=== PATIENT | male | born 1950 | race Caucasian/White ===

== ENCOUNTER 2016-09-30 15:09 | Emergency (ER) | payer OTHER ==
[~2016-09-30] VITALS: Wt 75.5 kg
[~2016-09-30 15:09] MED LIST: ACET500C5 PO; ALBU8.5H5 INH; AMLO-145 PO; ASPI81TA3 PO; ATEN-51 PO; DONE10TA7 PO; DOXY100T20 PO; FAMO40TA52 PO; GABA300C16 PO; GABA300S PO; HYDR-3498 PO; IBUP400T22 PO; LANS30CA PO; LANT3I SC; LORA10TA3 PO; LOSA50TA6 PO; METF-480 PO; MONT10TA21 PO; ONDA4TAB35 PO; PRED20TA PO; SIMV20TA2 PO
[2016-09-30] MEDS ORDERED: HYDROCODONE/APAP (10/325) TAB PO ONE (18:30)
[2016-09-30] MEDS ORDERED: predniSONE 20 MG TAB PO ONE (18:30)
[2016-09-30] MEDS ORDERED: GABA400C PO (18:32)
[2016-09-30] MEDS ORDERED: HYDR-902 PO (18:32)
--- NOTE | 2016-09-30 18:34 | ERD ---
ER Documentation Chief Complaint Date/Time DATE: 09/30/16 TIME: 18:32 Chief Complaint LEFT LEG TINGLING RADIATING TO LEFT SIDE TO HIS HEART. NO CP NO SOB . HPI This is 66-year-old male complains of left leg burning pain from his medial knee down to his medial ankle for the past 10 days. Says it tends to get worse as the day goes on but describes the pain is a burning pain with no swelling no erythema no weakness. The patient has diabetes and says it the same problem in the right leg last year. Is no leg dragging when he walks no foot drop no loss of sensation ROS All systems reviewed and are negative except as per history of present illness. Medications Home Meds Active Scripts Gabapentin* (Neurontin*) 400 Mg Capsule, 400 MG PO TID, #90 CAP Prov:JAGUAR WESTON DO 09/30/16 Hydrocodone/Acetaminophen ([place] 10-325 Tablet) 1 Each Tablet, 1 TAB PO Q6H Y for PAIN, #20 TAB Prov:JAGUAR WESTON DO 09/30/16 Gabapentin* (Gabapentin*) 300 Mg Capsule, 300 MG PO TID, #90 CAP Prov:RAJ TONY HISTOLOGY TECHNOLOGIST 03/29/16 Ondansetron Hcl* (Zofran* ODT) 4 mg -ODT Tab.disper, 4 MG PO DAILY Y for NAUSEA AND/OR VOMITING, #10 TAB 0 Refills Prov:ORVILLE SIMMONS PA-C 09/04/15 Ibuprofen* (Motrin*) 400 Mg Tab, 400 MG PO Q6, #30 TAB 0 Refills Prov:ORVILLE SIMMONS PA-C 09/04/15 Acetaminophen* (Tylophen*) 500 Mg Capsule, 1 CAP PO Q6H Y for PAIN AND OR ELEVATED TEMP, #30 CAP 0 Refills Prov:ORVILLE SIMMONS PA-C 09/04/15 Prednisone* (Prednisone*) 20 Mg Tab, 60 MG PO DAILY for 5 Days Prov:ADRINA MEDEL 03/28/15 Albuterol Sulfate* (Albuterol Sulfate* HFA) 8.5 Gm Hfa.aer.ad, 1 PUFF INH Q4 Y for SHORTNESS OF BREATH, #1 EA Prov:ADRIAN MEDEL 03/28/15 Doxycycline Hyclate* (Doxycycline Hyclate*) 100 Mg Tablet.dr, 100 MG PO BID for 7 Days, TAB Prov:ADRIAN MEDEL 03/28/15 Insulin Glargine* (Lantus*) 100 Unit/Ml Soln, 20 UNIT SC HS for 30 Days Prov:DORA HERNANDEZ MD 12/28/14 Hydrocodone Bit-Acetaminophen* ([place]*) 5-325 Mg Tab, 1 TAB PO Q6 Y for PAIN, # 10 TAB Prov:KG SCHWARTZ DO 12/18/14 Metformin* (Glucophage*) 850 Mg Tab, 850 MG PO WITH BREAKFAST DINNE for 30 Days , 2 Refills Prov:SOFIA BROWN 06/15/14 Reported Medications Lansoprazole* (Lansoprazole*) 30 Mg Capsule.dr, 30 MG PO DAILY, CAP 06/14/14 Gabapentin (GABAPENTIN) 300 Mg/6 Ml Solution, 300 MG PO TID 06/14/14 Famotidine* (Famotidine*) 40 Mg Tablet, 40 MG PO DAILY, TAB 06/14/14 Montelukast Sodium* (Singulair*) 10 Mg Tablet, 10 MG PO AM, TAB 06/14/14 Amlodipine Besylate* (Amlodipine Besylate*) 5 Mg Tablet, 5 MG PO DAILY, TAB 06/14/14 Losartan Potassium* (Losartan Potassium*) 50 Mg Tablet, 50 MG PO DAILY, TAB 06/14/14 Atenolol* (Atenolol*) 25 Mg Tablet, 25 MG PO DAILY, TAB 06/14/14 Donepezil* (Donepezil*) 10 Mg Tablet, 10 MG PO DAILY, TAB 06/14/14 Loratadine* (Loratadine*) 10 Mg Tablet, 10 MG PO DAILY, TAB 06/14/14 Aspirin* (Aspirin* Chew) 81 Mg Tab.chew, 81 MG PO DAILY, TAB.CHEW 06/14/14 Simvastatin (Simvastatin) 20 Mg Tablet, 40 MG PO HS, TAB 06/14/14 Allergies Allergies: Coded Allergies: No Known Allergy (Unverified , 09/30/16) PMhx/Soc History of Surgery: Yes (cataract surgery) Anesthesia Reaction: No Hx Neurological Disorder: No Hx Respiratory Disorders: No Hx Cardiac Disorders: Yes (HTN, hyperlipdemia ) Hx Psychiatric Problems: No Hx Miscellaneous Medical Probl: No (dm) Hx Alcohol Use: No Hx Substance Use: No Hx Tobacco Use: No Smoking Status: Never smoker FmHx Family History: No coronary disease Physical Exam Vitals Vital Signs Date Time Temp Pulse Resp B/P Pulse Ox O2 Delivery O2 Flow Rate FiO2 09/30/16 17:48 97.8 64 20 188/79 100 Room Air 09/30/16 15:15 97.8 71 20 127/72 98 Physical Exam Const: Well-developed, well-nourished Head: Atraumatic, normocephalic Eyes: Normal Conjunctiva, PERRLA, EOMI, normal sclera, no nystagmus ENT: Normal External Ears, Nose and Mouth, moist mucus membranes. Neck: Full range of motion. No meningismus, no lymphadenopathy. Resp: Clear to auscultation bilaterally, no wheezing, rhonchi, rales Cardio: Regular rate and rhythm, no murmurs, S1 S2 present Abd: Soft, non tender x 4, non distended. Normal bowel sounds, no guarding or rebound, no pulsitile abdominal masses or bruits Skin: No petechiae or rashes, no ecchymosis , no maculopapular rash Back: No midline or flank tenderness Ext: No cyanosis, or edema, FROM x 4, normal inspection, neurovascularly intact x 4, tenderness along the medial aspect of his left leg from the knee to the ankle but no erythema no swelling no signs of DVT Neur: Awake and alert, STR 5/5 x 4, sensation intact x 4, no focal findings, cerebellum intact Psych: Normal Mood and Affect Results 24 hrs Current Medications Medications (Trade) Dose Ordered Sig/Edwin Route PRN Reason Start Time Stop Time Status Last Admin Dose Admin Acetaminophen/ Hydrocodone Bitart ([place] (10/325)) 1 tab ONCE ONCE PO 09/30/16 18:30 09/30/16 18:31 DC Prednisone (Prednisone) 60 mg ONCE ONCE PO 09/30/16 18:30 09/30/16 18:31 DC Procedures/MDM Patient has a good description for peripheral neuropathy due to his diabetes. Treat with pain control and Neurontin Departure Diagnosis: Primary Impression: Neuropathy Condition: Stable Patient Instructions: Neuropathy, Peripheral JAGUAR WESTON DO Sep 30, 2016 18:34
[2016-09-30] MEDS ORDERED: ONDANSETRON 4 MG INJ IV STA (19:34)
[2016-09-30] MEDS ORDERED: HYDROmorphONE 1 MG/ML SYG IV STA (19:34)
[2016-09-30] MEDS ORDERED: ONDANSETRON 4 MG INJ ONE (19:37)
[2016-09-30 20:02] VITALS: BP 176/81; PULSE 67; RESP 20; TEMP 97.8
== END 2016-09-30 20:10 | disposition home or self-care (01) ==
LOC: E/R 15:09
DX: G62.9 Polyneuropathy, unspecified (principal); E11.9 Type 2 diabetes mellitus without complications; I10 Essential (primary) hypertension; Z79.82 Long term (current) use of aspirin; Z79.4 Long term (current) use of insulin; Z79.84 Long term (current) use of oral hypoglycemic drugs
CPT/HCPCS: 93005; 96374; 96375; J1170; J2405; J7512; Z7502; Z7610

== ENCOUNTER 2018-05-24 02:00 | Observation (INO) | END 2018-05-25 17:55 | disposition home or self-care (01) ==